=== PATIENT | female | born 1980 | race Two or more races ===

== ENCOUNTER 2024-10-01 23:24 | Emergency (ER) | payer OTHER ==
[~2024-10-01] VITALS: Ht 172.7 cm; Wt 72.6 kg
[2024-10-02] MEDS ORDERED: HYOSCYAMINE SULFATE 0.125 MG TAB.SUBL SL STA (01:39)
[2024-10-02] MEDS ORDERED: ONDANSETRON HCL 2 MG/ML VIAL IV STA (01:39)
[2024-10-02] MEDS ORDERED: ONDANSETRON HCL 2 MG/ML VIAL ONE (01:43)
[2024-10-02] MEDS ORDERED: FAMOTIDINE/PF 20 MG/2 ML VIAL ONE (01:43)
[2024-10-02] MEDS ORDERED: HYOSCYAMINE SULFATE 0.125 MG TAB.SUBL ONE ×2 (01:43→07:19)
[2024-10-02] MEDS ORDERED: 0.9 % SODIUM CHLORIDE 1,000 ML IV ONE (01:45)
[2024-10-02] MEDS ORDERED: FAMOTIDINE/PF 20 MG/2 ML VIAL IV PUSH SCH (01:45)
[2024-10-02 02:16] LABS: HEMATOCRIT 43.6 % (36.0-45.00); HEMOGLOBIN 15.1 g/dL (12.0-15.00); MEAN CELL VOLUME 91.6 fL (80.00-100.00); MEAN CORPUSCULAR HEMOGLOBIN 31.7 pg (27.00-32.0); MEAN CORPUSCULAR HGB CONC 34.6 g/dl (32.0-36.0); PLATELET COUNT 234 K/uL (150-450); RED BLOOD COUNT 4.76 M/uL (4.00-6.00); RED CELL DISTRIBUTION WIDTH 12.9 % (11.5-14.5)
[2024-10-02 02:52] LABS: CALCIUM 9.3 mg/dL (8.5-10.1); CREATININE SERUM 0.77 mg/dL (0.55-1.02); GFR 82.21; POTASSIUM 3.62 mEq/L (3.5-5.1)
[2024-10-02 04:16] LABS: URINE APPEARANCE Clear; URINE BILIRRUBIN Small (NEGATIVE); URINE BLOOD Negative; URINE COLOR Dark Yellow; URINE GLUCOSE Negative (NEGATIVE); URINE LEUKOCYTE Negative; URINE NITRATE Negative; URINE PROTEIN 30 (NEGATIVE); URINE UROBILINOGEN 0.2 E.U./dl
[2024-10-02 04:18] LABS: URINE BACTERIA 1646.2 uL (0.0-1933); URINE EPITHELIAL CELLS 41.6 uL (0.0-38.8); URINE RBC 10.3 uL (0.0-20.8); URINE WBC 6.8 uL (0.0-23.2)
[2024-10-02 04:24] LABS: URINE KETONE 80 (NEGATIVE)
[2024-10-02 04:25] LABS: URINE CAST 0.58 uL (0.0-1.40)
[2024-10-02] MEDS ORDERED: HYOSCYAMINE SULFATE 0.125 MG TAB.SUBL SL ONE (07:15)
[2024-10-02] MEDS ORDERED: SUCRALFATE 1 G TABLET PO ONE (09:30)
== END 2024-10-02 09:33 | disposition home or self-care (01) ==
LOC: ER 23:27
PROVIDERS: General Practice
DX: R11.10 Vomiting, unspecified (principal); Z88.8 Allergy status to other drugs, medicaments and biological substances; Z91.013 Allergy to seafood; Z91.018 Allergy to other foods
CPT/HCPCS: 36415; 96365; 96366; 99282; J2405; J3490